=== PATIENT | male | born 1965 | race Two or more races ===

== ENCOUNTER 2020-05-02 13:39 | Emergency (ER) | payer SELFPAY ==
[~2020-05-02] VITALS: Ht 167.6 cm; Wt 77.0 kg
[2020-05-02 14:30] LABS: BASO # 0.1 x10^3/uL (0.0-0.2); BASO % 1 % (0-3); EOS # 0.1 x10^3/uL (0.0-0.7); EOS % 1 % (0-3); HEMATOCRIT 45.6 % (39.0-53.0); HEMOGLOBIN 15.4 g/dL (13.0-17.5); LYMPH # 1.3 x10^3/uL (1.0-4.8); LYMPH % 19 % (24-48); MEAN CORPUSCULAR HEMOGLOBIN 29 pg (25-35); MEAN CORPUSCULAR HGB CONC 34 g/dL (31-37); MEAN CORPUSCULAR VOLUME 86 fL (79-100); MONO # 0.6 x10^3/uL (0.0-1.1); MONO % 8 % (0-9); NEUT # 4.9 x10^3/uL (1.8-7.7); NEUT % 71 % (31-73); PLATELET COUNT 155 x10^3/uL (140-400); RED BLOOD COUNT 5.28 x10^6/uL (4.30-5.70); RED CELL DISTRIBUTION WIDTH 13.2 % (11.5-14.5)
--- NOTE | 2020-05-02 14:30 | PHYS DOC ---
Past Medical History Past Medical History: Diabetes-Type II Past Surgical History: No Surgical History Smoking Status: Never Smoker Alcohol Use: Occasionally General Adult EDM: Chief Complaint: FACE PROBLEM HPI: HPI: Patient is a 54 year old male with history of diabetes type 2 who presents to the ED today complaining of left-sided facial droop that he noted yesterday when he woke up. Patient denies any headache. Denies any chest pain or shortness of breath. Review of Systems: Review of Systems: Constitutional: Denies fever or chills. [] Eyes: Denies change in visual acuity. [] HENT: Denies nasal congestion or sore throat. [] Respiratory: Denies cough or shortness of breath. [] Cardiovascular: Denies chest pain or edema. [] GI: Denies abdominal pain, nausea, vomiting, bloody stools or diarrhea. [] : Denies dysuria. [] Musculoskeletal: Denies back pain or joint pain. [] Integument: Denies rash. [] Neurologic: Reports left-sided facial droop. Denies headache, focal weakness or sensory changes. [] [] Psychiatric: Denies depression or anxiety. [] Heart Score: Risk Factors: Risk Factors: DM, Current or recent (<one month) smoker, HTN, HLP, family history of CAD, obesity. Risk Scores: Score 0 - 3: 2.5% MACE over next 6 weeks - Discharge Home Score 4 - 6: 20.3% MACE over next 6 weeks - Admit for Clinical Observation Score 7 - 10: 72.7% MACE over next 6 weeks - Early Invasive Strategies Allergies: Allergies: Allergies Coded Allergies Type Severity Reaction Last Updated Verified No Known Drug Allergies 05/02/20 No Physical Exam: PE: Constitutional: Well developed, well nourished, no acute distress, non-toxic appearance. [] HENT: Normocephalic, atraumatic, bilateral external ears normal, oropharynx moist, no oral exudates, nose normal. [] Eyes: PERRLA, EOMI, conjunctiva normal, no discharge. [] Neck: Normal range of motion, no tenderness, supple, no stridor. [] Cardiovascular:Heart rate regular rhythm, no murmur [] Lungs & Thorax: Bilateral breath sounds clear to auscultation [] Abdomen: Bowel sounds normal, soft, no tenderness, no masses, no pulsatile masses. [] Skin: Warm, dry, no erythema, no rash. [] Back: No tenderness, no CVA tenderness. [] Extremities: No tenderness, no cyanosis, no clubbing, ROM intact, no edema. [] Neurologic: Left facial droop is noted with normal peripheral vision, difficulty closing the left eye or raising left eye brow. Alert and oriented X 3, normal motor function, normal sensory function, no focal deficits noted. 5/5 strength to bilateral upper and lower extremities. Psychologic: Affect normal, judgement normal, mood normal. [] Current Patient Data: Vital Signs: Vital Signs Date Time Temp Pulse Resp B/P (MAP) Pulse Ox O2 Delivery O2 Flow Rate FiO2 05/02/20 13:53 98.2 79 18 151/101 (118) 97 Room Air 98.2 EKG: EKG: [] Radiology/Procedures: Radiology/Procedures: []PROCEDURE: CT HEAD WO CONTRAST CT head without contrast dated 05/02/2020. No comparison available. CLINICAL INDICATION: Left facial droop. TECHNIQUE: Continues axial imaging the head performed from skull base to vertex. No contrast administered. One or more of the following individualized dose reduction techniques were utilized for this examination: 1. Automated exposure control 2. Adjustment of the mA and/or kV according to patient size 3. Use of iterative reconstruction technique. FINDINGS: Ventricles and sulci are within normal limits for age. No midline shift or mass effect. Brain parenchyma is of normal attenuation. No hemorrhage or extra-axial collection. Posterior fossa and brainstem unremarkable. Visualized paranasal sinuses and mastoid air cells are clear. No apparent calvarial abnormality. IMPRESSION: No evidence of acute intracranial abnormality. Electronically signed by: Tip Castro MD (05/02/2020 2:49 PM) [facility] [place] DICTATED and SIGNED BY: TIP CASTRO MD DATE: 05/02/20 1449 Course & Med Decision Making: Course & Med Decision Making Pertinent Labs and Imaging studies reviewed. (See chart for details) This is a 54-year-old male patient presenting to the ED today with left-sided facial droop, symptoms noted yesterday morning when he woke up. CT of the head is negative. Stroke scale-1. Labs are negative for any acute findings. Vitals are stable. 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 Dr. Znuiga also evaluated patient and agreed he has Santos's palsy Patient was given IV Solu-Medrol and p.o. acyclovir. Discharged with acyclovir, prednisone and artificial tears. Provided instructions to follow-up with the PCP as well as neurosurgery. Provided return precautions and discharged in stable condition. Levi Disclaimer: Levi Disclaimer: This electronic medical record was generated, in whole or in part, using a voice recognition dictation system. NIHSS Stroke Scale NIH Stroke Scale: NIH Stroke Scale Response (Comments) Value Level of Consciousness: 0 Alert/Responsive 0 LOC Questions: 0 Answers both correctly 0 Best Gaze: 0 Normal 0 Visual: 0 No visual loss 0 Facial Palsy: 1 Minor paralysis 1 Motor - Left Arm 0 No drift 0 Motor - Right Arm 0 No drift 0 Motor - Left Leg 0 No drift 0 Motor: Right Leg 0 No drift 0 Limb Ataxia: 0 Absent 0 Sensory: 0 No loss 0 Best Language: 0 Normal 0 Dysathria: 0 Normal 0 Total 1 Departure Departure Impression: Primary Impression: Santos's palsy Disposition: 01 HOME, SELF-CARE Condition: STABLE Referrals: ZACK NELSON MD Patient Instructions: Santos's Palsy Additional Instructions: You have symptoms consistent with Santos's palsy. We will put you on medications, take them as prescribed. This condition might resolve in 3 weeks to 6 months. Please come back to the ED at any point symptoms worsen. Scripts Carboxymethylcellulose Sodium (Artificial Tears) 15 Ml Drops 15 ML LEFTEYE Q2HR W/A PRN for DRY EYE, #1 BOTTLE Prov: KRISTINE SEXTON APRN 05/02/20 Prednisone (PREDNISONE ) 10 Mg Tablet 6 TAB PO DAILY, #42 TAB 0 Refills Prov: KRISTINE SEXTON APRN 05/02/20 Acyclovir (ACYCLOVIR) 400 Mg Tablet 1 TAB PO BID, #60 TAB Prov: KRISTINE SEXTON APRN 05/02/20 Justicifation of Admission Dx: Justifications for Admission: Justification of Admission Dx: N/A KRISTINE SEXTON APRN May 02, 2020 14:30
[2020-05-02 14:39] LABS: PROTHROMBIN TIME PATIENT 12.7 SEC (11.7-14.0)
[2020-05-02 14:40] LABS: CALCIUM 8.7 mg/dL (8.5-10.1); CREATININE 0.7 mg/dL (0.7-1.3); POTASSIUM 3.5 mmol/L (3.5-5.1)
[2020-05-02 14:46] LABS: ALBUMIN 3.7 g/dL (3.4-5.0); ALBUMIN/GLOBULIN RATIO 1.1 (1.0-1.7); MAGNESIUM 1.9 mg/dL (1.8-2.4); TOTAL BILIRUBIN 0.8 mg/dL (0.2-1.0)
--- NOTE | 2020-05-02 14:52 | RAD ---
CT head without contrast dated 05/02/2020. No comparison available. CLINICAL INDICATION: Left facial droop. TECHNIQUE: Continues axial imaging the head performed from skull base to vertex. No contrast administered. One or more of the following individualized dose reduction techniques were utilized for this examination: 1. Automated exposure control 2. Adjustment of the mA and/or kV according to patient size 3. Use of iterative reconstruction technique. FINDINGS: Ventricles and sulci are within normal limits for age. No midline shift or mass effect. Brain parenchyma is of normal attenuation. No hemorrhage or extra-axial collection. Posterior fossa and brainstem unremarkable. Visualized paranasal sinuses and mastoid air cells are clear. No apparent calvarial abnormality. IMPRESSION: No evidence of acute intracranial abnormality. Electronically signed by: Tip Castro MD (05/02/2020 2:49 PM) [facility]LEX
--- NOTE | 2020-05-02 14:59 | EKG ---
[facility] [address] [place] [address] Test Date: 2020-05-02 Test Time: 14:46:55 Pat Name: RAYSHAWN ANN Department: Room: Gender: M Bad Credit Collector: : 1965 Requested By: KRISTINE SEXTON Order Number: [id number] Reading MD: Measurements Intervals Wickes Rate: 71 P: 0 MD: 124 QRS: 16 QRSD: 86 T: -5 QT: 360 QTc: 396 Interpretive Statements SINUS RHYTHM QRS(T) CONTOUR ABNORMALITY CONSIDER ANTEROLATERAL MYOCARDIAL DAMAGE POSSIBLY ABNORMAL ECG RI6.01 No previous ECG available for comparison
[2020-05-02] MEDS ORDERED: ACYCLOVIR 200 MG CAPSULE. PO STA (16:24)
[2020-05-02 17:00] LABS: BILIRUBIN,URINE NEGATIVE (NEG); CLARITY,URINE CLEAR; COLOR,URINE YELLOW; NITRITE,URINE NEGATIVE (NEG); PH,URINE 5.5 (<5.0-8.0); PROTEIN,URINE NEGATIVE (NEG-TRACE); UROBILINOGEN,URINE 0.2 mg/dL (0.2 mg/dL)
[2020-05-02] MEDS ORDERED: methylPREDNISolone SOD SUCC PF 125 MG/2 ML VIAL. IV ONE (17:00)
[2020-05-02 17:03] LABS: BACTERIA,URINE 0 /HPF (0-FEW); RBC,URINE OCC /HPF (0-2); WBC,URINE 0 /HPF (0-4)
[2020-05-02 17:17] LABS: BARBITURATES NEG (NEG); BENZODIAZEPINES NEG (NEG); CANNABINOIDS NEG (NEG); COCAINE NEG (NEG); METHADONE NEG (NEG); OPIATES NEG (NEG); PHENCYCLIDINE NEG (NEG)
[2020-05-02 17:20] LABS: AMPHETAMINE/METHAMPHETAMINE NEG (NEG)
[2020-05-02] MEDS ORDERED: ACYC400T PO (17:26)
[2020-05-02] MEDS ORDERED: PRED-220 PO (17:30)
[2020-05-02] MEDS ORDERED: [UNRECOGNIZED DRUG - CODE] LEFTEYE (17:43)
[2020-05-02 18:00] VITALS: BP 148/89
== END 2020-05-02 18:10 | disposition home or self-care (01) ==
LOC: ER 13:39
DX: G51.0 Bell's palsy (principal); E11.9 Type 2 diabetes mellitus without complications
CPT/HCPCS: 36415; 70450; 80053; 80307; 81001; 82553; 82962; 83735; 83880; 84484; 85025; 85610; 85730; 93005; 96374; 99285; J2930

== ENCOUNTER 2021-11-20 13:31 | Emergency (ER) | payer OTHER ==
[~2021-11-20] VITALS: Ht 175.3 cm; Wt 81.8 kg
[~2021-11-20 13:31] MED LIST: ACYC-12 PO; PRED-220 PO; [UNRECOGNIZED DRUG - CODE] LEFTEYE
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
[2021-11-20] MEDS ORDERED: IBUPROFEN 200 MG TABLET. PO ONE (15:00)
[2021-11-20 15:04] VITALS: BP 163/100
== END 2021-11-20 15:12 | disposition home or self-care (01) ==
LOC: ER 13:31
DX: R51.9 Headache, unspecified (principal); M54.50 Low back pain, unspecified; M25.522 Pain in left elbow; E11.9 Type 2 diabetes mellitus without complications; G89.11 Acute pain due to trauma; V49.49XA Driver injured in collision with other motor vehicles in traffic accident, initial encounter; Y93.89 Activity, other specified; Y92.488 Other paved roadways as the place of occurrence of the external cause; Y99.8 Other external cause status
CPT/HCPCS: 70450; 72125; 72131; 73080; 99284-25